=== PATIENT | female | born 1965 | race African-American/Black ===

== ENCOUNTER 2017-06-21 12:37 | Inpatient (IN) | payer MEDICAID ==
[~2017-06-21] VITALS: Ht 162.6 cm; Wt 86.0 kg
[~2017-06-21 12:37] MED LIST: ALPR1TAB7 PO; ASPI81 PO; CLON0.3T3 PO; GABA-531 PO; LABE200T PO; LOSA50TA37 PO; OXYC-158 PO; SIMV20TA6 PO; ZOLP10TA7 PO
[2017-06-21] MEDS ORDERED: HYDROmorphone 2 MG/ML SYRINGE IVP ONE (14:30)
[2017-06-21] MEDS ORDERED: ONDANSETRON HCL 4 MG/2 ML VIAL IVP ONE (14:30)
[2017-06-21] MEDS ORDERED: ALPRAZolam 1 MG TABLET PO ONE (14:30)
[2017-06-21 14:34] LABS: AMPHET/METH SCREEN,URINE NEGATIVE (NEGATIVE); BARBITURATE SCREEN, URINE NEGATIVE (NEGATIVE); BENZODIAZEPINES SCREEN,URINE POSITIVE (NEGATIVE); CANNABINOID SCREEN,URINE POSITIVE (NEGATIVE); COCAINE SCREEN,URINE NEGATIVE (NEGATIVE); METHADONE SCREEN, URINE NEGATIVE (NEGATIVE); OPIATE SCREEN,URINE POSITIVE (NEGATIVE)
[2017-06-21 14:35] LABS: PHENCYCLIDINE SCREEN,URINE NEGATIVE (NEGATIVE)
[2017-06-21 14:40] LABS: APPEARANCE,URINE CLEAR (CLEAR); BILIRUBIN,URINE NEGATIVE (NEGATIVE); GLUCOSE, URINE (UA) NEGATIVE (NEGATIVE); KETONES,URINE NEGATIVE (NEGATIVE); LEUKOCYTE ESTERASE ,URINE NEGATIVE (NEGATIVE); NITRATE,URINE NEGATIVE (NEGATIVE); OCCULT BLOOD,URINE NEGATIVE (NEGATIVE); PROTEIN,URINE TRACE (NEGATIVE)
[2017-06-21 14:54] LABS: BACTERIA,URINE Rare /HPF (None Seen); RBC,URINE 0-2 /HPF (0-2); WBC,URINE 0-2 /HPF (0-5)
[2017-06-21 14:55] LABS: SQUAMOUS EPITHELIAL CELL,UR Moderate /LPF (None Seen)
[2017-06-21 15:33] LABS: BASOPHILS % (AUTO) 0.7 % (0.0-2.0); EOSINOPHILS % (AUTO) 0.5 % (1.0-6.0); HEMATOCRIT 35.1 % (36-46); HEMOGLOBIN 11.9 g/dL (12.0-16.0); LYMPHOCYTES # (AUTO) 1.1 K/uL (1.0-4.8); LYMPHOCYTES % (AUTO) 18.1 % (22.0-44.0); MEAN CORPUSCULAR HEMOGLOBIN 32.1 pg (26.0-34.0); MEAN CORPUSCULAR HGB CONC 33.9 G/dL (31.0-37.0); MEAN CORPUSCULAR VOLUME 95 fL (80-100); MONOCYTES # (AUTO) 0.5 K/uL (0.1-1.0); MONOCYTES % (AUTO) 8.8 % (2.0-9.0); NEUTROPHILS # (AUTO) 4.4 K/uL (1.8-7.7); NEUTROPHILS % (AUTO) 71.9 % (40.0-70.0); PLATELET COUNT (AUTO) 255 K/uL (150-450); RED CELL DISTRIBUTION WIDTH 14.4 % (11.5-14.5)
[2017-06-21 15:45] LABS: PROTHROMBIN TIME 10.4 SEC (9.4-11.6)
[2017-06-21 15:59] LABS: ANION GAP 10 mmol/L (8-16); CALCIUM, TOTAL 9.4 mg/dL (8.8-10.5); CARBON DIOXIDE 28 mmol/L (22-29); CHLORIDE 109 mmol/L (98-107); GLOMERULAR FILTR. RATE CALC > 60 mL/min (>60); GLUCOSE,RANDOM 108 mg/dL (70-110); POTASSIUM 3.9 mmol/L (3.5-5.1); SODIUM SERUM 147 mmol/L (136-145); UREA NITROGEN, BLOOD 9 mg/dL (7-18)
[2017-06-21] MEDS ORDERED: ONDANSETRON HCL 4 MG/2 ML VIAL IVP PRN (16:00)
[2017-06-21] MEDS ORDERED: 0.9% SODIUM CHLORIDE 10 ML SYRINGE IVP PRN (16:00)
[2017-06-21] MEDS ORDERED: ACETAMINOPHEN 325 MG TABLET PO PRN (16:00)
[2017-06-21 16:01] LABS: B-TYPE NATRIURETIC PEPTIDE 33 pg/mL (0-100)
[2017-06-21 16:04] LABS: ALANINE AMINOTRANSFERASE 25 U/L (12-78); ALBUMIN 3.8 g/dL (3.4-5.0); ALKALINE PHOSPHATASE 80 U/L (46-116); ASPARTATE AMINOTRANSFERASE 18 U/L (15-37); BILIRUBIN,TOTAL 0.3 mg/dL (0.1-1.0); TOTAL PROTEIN, SERUM 7.5 g/dL (6.4-8.2)
[2017-06-21] MEDS ORDERED: PROM25 PO (16:14)
[2017-06-21] MEDS ORDERED: ATOR40TA28 PO (16:14)
[2017-06-21] MEDS ORDERED: FURO40 PO (16:14)
[2017-06-21] MEDS ORDERED: NIFE60TA81 PO (16:14)
[2017-06-21] MEDS ORDERED: OXYC10IR PO (16:14)
[2017-06-21] MEDS ORDERED: CARI350 PO (16:14)
[2017-06-21] MEDS ORDERED: ALBU8HFA4 IH (16:14)
[2017-06-21] MEDS ORDERED: CARV12 PO (16:14)
[2017-06-21] MEDS ORDERED: PANT40TA25 PO (16:14)
[2017-06-21] MEDS ORDERED: POTA-9 PO (16:14)
[2017-06-21] MEDS ORDERED: DOCU250C91 PO (16:14)
[2017-06-21] MEDS ORDERED: CLON.3 PO (16:14)
[2017-06-21] MEDS ORDERED: HYDR-2924 PO (16:14)
[2017-06-21] MEDS ORDERED: CloNIDine HCL 0.1 MG TABLET PO ONE (16:45)
[2017-06-21] MEDS ORDERED: HydrALAZINE HCL 25 MG TABLET PO ONE (16:45)
[2017-06-21] MEDS ORDERED: PROMETHAZINE HCL 25 MG TABLET PO PRN (18:45)
[2017-06-21] MEDS ORDERED: ALBUTEROL SULFATE HFA 90 MCG/PUFF 8 GM INHALER IH PRN (18:45)
[2017-06-21] MEDS ORDERED: DOCUSATE SODIUM 250 MG CAPSULE PO PRN (18:45)
[2017-06-21 18:49] VITALS: BP 178/116
[2017-06-21] MEDS ORDERED: NITROGLYCERIN 2% (1 GM=INCH) PACKET TP PRN (19:00)
[2017-06-21] MEDS ORDERED: ACETAMINOPHEN 650 MG/20.3 ML SOLUTION UDCUP PO PRN (19:00)
[2017-06-21 19:49] VITALS: BP 167/89
[2017-06-21] MEDS: HydrALAZINE HCL 20 MG/ML VIAL IVP PRN (20:35)
[2017-06-21] MEDS: LOSARTAN POTASSIUM 50 MG TABLET PO SCH (20:35)
[2017-06-21] MEDS: ALPRAZolam 1 MG TABLET PO SCH (20:36)
[2017-06-21] MEDS: CARISOPRODOL 350 MG TABLET PO SCH (20:36)
[2017-06-21] MEDS: ZOLPIDEM TARTRATE 10 MG TABLET PO SCH (20:36)
[2017-06-21] MEDS: ATORVASTATIN CALCIUM 40 MG TABLET PO SCH (20:36)
[2017-06-21] MEDS: HydrALAZINE HCL 50 MG TABLET PO SCH (21:00)
[2017-06-22] VITALS (14 sets, daily range): BP systolic 137–192; BP diastolic 72–118
[2017-06-22] MEDS: OxyCODONE HCL 10 MG IR TABLET PO PRN ×3 (06:52→20:57)
[2017-06-22] MEDS: HEPARIN SODIUM,PORCINE 5,000 UNITS/ML VIAL SQ SCH ×3 (08:00→16:00)
[2017-06-22] MEDS: FUROSEMIDE 40 MG TABLET PO SCH (08:26)
[2017-06-22] MEDS: LOSARTAN POTASSIUM 50 MG TABLET PO SCH ×2 (08:26→20:20)
[2017-06-22] MEDS: POTASSIUM CHLORIDE 10 MEQ ER TABLET PO SCH (08:26)
[2017-06-22] MEDS: ASPIRIN 81 MG CHEWABLE TABLET PO SCH (08:27)
[2017-06-22] MEDS: HydrALAZINE HCL 50 MG TABLET PO SCH ×3 (08:29→20:57)
[2017-06-22] MEDS: ALPRAZolam 1 MG TABLET PO SCH ×4 (08:29→20:57)
[2017-06-22] MEDS: PANTOPRAZOLE SODIUM 40 MG DR TABLET PO SCH (08:29)
[2017-06-22] MEDS: CARISOPRODOL 350 MG TABLET PO SCH ×2 (08:29→20:20)
[2017-06-22] MEDS ORDERED: CARVEDILOL 12.5 MG TABLET PO ONE (08:45)
[2017-06-22] MEDS ORDERED: CARVEDILOL 25 MG TABLET PO SCH (09:00)
[2017-06-22] MEDS ORDERED: CARVEDILOL 12.5 MG TABLET PO SCH (09:00)
[2017-06-22] MEDS ORDERED: HEPARIN SODIUM 1000 UNITS/NS 1,000 ML ONE (12:21)
[2017-06-22] MEDS ORDERED: LIDOCAINE HCL/PF 1% 30 ML VIAL ONE (12:21)
[2017-06-22] MEDS ORDERED: IOHEXOL 300 MG/ML 150 ML VIAL ONE (12:21)
[2017-06-22] MEDS ORDERED: SODIUM BICARBONATE 50 MEQ/50 ML VIAL ONE (12:21)
[2017-06-22] MEDS ORDERED: FentaNYL CITRATE-PF 100 MCG/2 ML VIAL ONE (12:53)
[2017-06-22] MEDS ORDERED: MIDAZOLAM HCL 2 MG/2 ML VIAL ONE (12:53)
[2017-06-22] MEDS ORDERED: SODIUM CHLORIDE 0.9% 500 ML IV ONE (12:56)
[2017-06-22] MEDS ORDERED: HEPARIN SODIUM 2,000 UNITS in HEPARIN SODIUM 1000 UNITS/NS 1,000 ML IARTER ONE (12:56)
[2017-06-22] MEDS ORDERED: MIDAZOLAM HCL 2 MG/2 ML VIAL IVP ONE (13:00)
[2017-06-22] MEDS ORDERED: FentaNYL CITRATE-PF 100 MCG/2 ML VIAL IVP ONE (13:00)
[2017-06-22] MEDS ORDERED: LIDOCAINE 1% 30 ML/SOD BICARB 8.4% 4 ML SQ ONE (13:00)
[2017-06-22] MEDS ORDERED: IOHEXOL 300 MG/ML 150 ML VIAL IARTER ONE (13:00)
[2017-06-22] MEDS ORDERED: DILTIAZEM HCL 5 MG/ML 5 ML VIAL IVP ONE ×2 (13:07→13:15)
[2017-06-22] MEDS ORDERED: ACETAMINOPHEN 325 MG TABLET PO PRN (13:15)
[2017-06-22] MEDS: ONDANSETRON HCL 4 MG/2 ML VIAL IVP PRN (14:07)
[2017-06-22] MEDS ORDERED: HEPARIN SODIUM,PORCINE 5,000 UNITS/ML VIAL SQ SCH (18:00)
[2017-06-22] MEDS: CARVEDILOL 25 MG TABLET PO SCH (20:20)
[2017-06-22] MEDS: ZOLPIDEM TARTRATE 10 MG TABLET PO SCH (20:20)
[2017-06-22] MEDS: ATORVASTATIN CALCIUM 40 MG TABLET PO SCH (20:20)
[2017-06-23] MEDS: ONDANSETRON HCL 4 MG/2 ML VIAL IVP PRN ×2 (01:44→09:02)
[2017-06-23] MEDS: OxyCODONE HCL 10 MG IR TABLET PO PRN ×2 (05:52→12:38)
[2017-06-23 06:00] VITALS: BP 179/109
[2017-06-23] MEDS: HydrALAZINE HCL 20 MG/ML VIAL IVP PRN (06:04)
[2017-06-23 06:42] LABS: BASOPHILS % (AUTO) 0.9 % (0.0-2.0); EOSINOPHILS % (AUTO) 1.8 % (1.0-6.0); HEMATOCRIT 33.4 % (36-46); HEMOGLOBIN 11.2 g/dL (12.0-16.0); LYMPHOCYTES # (AUTO) 1.8 K/uL (1.0-4.8); LYMPHOCYTES % (AUTO) 33.6 % (22.0-44.0); MEAN CORPUSCULAR HEMOGLOBIN 31.5 pg (26.0-34.0); MEAN CORPUSCULAR HGB CONC 33.4 G/dL (31.0-37.0); MEAN CORPUSCULAR VOLUME 94 fL (80-100); MONOCYTES # (AUTO) 0.5 K/uL (0.1-1.0); MONOCYTES % (AUTO) 10.1 % (2.0-9.0); NEUTROPHILS # (AUTO) 2.8 K/uL (1.8-7.7); NEUTROPHILS % (AUTO) 53.6 % (40.0-70.0); PLATELET COUNT (AUTO) 211 K/uL (150-450); RED BLOOD CELL COUNT(AUTO) 3.54 MIL/uL (4.00-5.20); RED CELL DISTRIBUTION WIDTH 14.1 % (11.5-14.5)
[2017-06-23] MEDS: ALPRAZolam 1 MG TABLET PO SCH ×2 (06:42→12:24)
[2017-06-23 06:58] LABS: ALANINE AMINOTRANSFERASE 18 U/L (12-78); ALBUMIN 3.3 g/dL (3.4-5.0); ALKALINE PHOSPHATASE 71 U/L (46-116); ANION GAP 8 mmol/L (8-16); ASPARTATE AMINOTRANSFERASE 17 U/L (15-37); BILIRUBIN,TOTAL 0.2 mg/dL (0.1-1.0); CALCIUM, TOTAL 9.2 mg/dL (8.8-10.5); CARBON DIOXIDE 27 mmol/L (22-29); CHLORIDE 107 mmol/L (98-107); CHOL/HDL RATIO 3.7 (3.9-5.7); CHOLESTEROL 127 mg/dL (131-200); CREATININE 0.94 mg/dL (0.60-1.30); GLOMERULAR FILTR. RATE CALC > 60 mL/min (>60); GLUCOSE,RANDOM 106 mg/dL (70-110); HDL CHOLESTEROL 34 mg/dL (40-60); LDL CHOL (CALC.) 72 mg/dL (0-130); POTASSIUM 4.5 mmol/L (3.5-5.1); SODIUM SERUM 142 mmol/L (136-145); TOTAL PROTEIN, SERUM 6.8 g/dL (6.4-8.2); TRIGLYCERIDES 105 mg/dL (15-150); UREA NITROGEN, BLOOD 10 mg/dL (7-18)
[2017-06-23 07:38] VITALS: BP 155/94
[2017-06-23] MEDS: HEPARIN SODIUM,PORCINE 5,000 UNITS/ML VIAL SQ SCH ×2 (08:00)
[2017-06-23 09:00] VITALS: BP 186/106
[2017-06-23] MEDS: FUROSEMIDE 40 MG TABLET PO SCH (09:00)
[2017-06-23] MEDS: CARISOPRODOL 350 MG TABLET PO SCH (09:02)
[2017-06-23] MEDS: HydrALAZINE HCL 50 MG TABLET PO SCH (09:02)
[2017-06-23] MEDS: PANTOPRAZOLE SODIUM 40 MG DR TABLET PO SCH (09:02)
[2017-06-23] MEDS: CARVEDILOL 25 MG TABLET PO SCH (09:03)
[2017-06-23] MEDS: ASPIRIN 81 MG CHEWABLE TABLET PO SCH (09:05)
[2017-06-23] MEDS: LOSARTAN POTASSIUM 50 MG TABLET PO SCH (09:05)
[2017-06-23] MEDS: POTASSIUM CHLORIDE 10 MEQ ER TABLET PO SCH (09:05)
[2017-06-23 10:59] VITALS: BP 125/70
[2017-06-23 11:46] VITALS: BP 130/75
== END 2017-06-23 15:05 | disposition home or self-care (01) | DRG 191 ==
LOC: EMS 12:38 → 5S 16:59
PROVIDERS: ADMIT Family Medicine; ATTEND Family Medicine
PROC: 4A023N7 Measurement of Cardiac Sampling and Pressure, Left Heart, Percutaneous Approach (ICD-10-PCS; principal; 2017-06-22)
PROC: B2111ZZ Fluoroscopy of Multiple Coronary Arteries using Low Osmolar Contrast (ICD-10-PCS; 2017-06-22)
PROC: B2151ZZ Fluoroscopy of Left Heart using Low Osmolar Contrast (ICD-10-PCS; 2017-06-22)
DX: I25.110 Atherosclerotic heart disease of native coronary artery with unstable angina pectoris (principal); I11.0 Hypertensive heart disease with heart failure; I50.9 Heart failure, unspecified; F32.9 Major depressive disorder, single episode, unspecified; E78.00 Pure hypercholesterolemia, unspecified; F41.9 Anxiety disorder, unspecified; G47.33 Obstructive sleep apnea (adult) (pediatric); G89.4 Chronic pain syndrome; J45.909 Unspecified asthma, uncomplicated; M19.90 Unspecified osteoarthritis, unspecified site; M79.7 Fibromyalgia; I25.2 Old myocardial infarction; Z90.710 Acquired absence of both cervix and uterus; Z95.5 Presence of coronary angioplasty implant and graft; Z98.1 Arthrodesis status; Z88.0 Allergy status to penicillin; Z88.1 Allergy status to other antibiotic agents; Z79.82 Long term (current) use of aspirin; Z79.01 Long term (current) use of anticoagulants; Z86.718 Personal history of other venous thrombosis and embolism; Z86.73 Personal history of transient ischemic attack (TIA), and cerebral infarction without residual deficits; Z87.891 Personal history of nicotine dependence
CPT/HCPCS: 83735; 93005; 93306; 94660; 96374; 96375; 99285; J0360; J1170; J1644; J2250; J2405; J3010; J3490; Q9967

== ENCOUNTER 2017-07-13 12:48 | Emergency (ER) | payer MEDICAID ==
[~2017-07-13] VITALS: Ht 162.6 cm; Wt 79.5 kg
[~2017-07-13 12:48] MED LIST changes: +ALBU8HFA4 IH; +ATOR40TA28 PO; +CARI350 PO; +CARV12 PO; +CLON.3 PO; -CLON0.3T3 PO; +DOCU250C91 PO; +FURO40 PO; -GABA-531 PO; +HYDR-2924 PO; -LABE200T PO; +NIFE60TA81 PO; -OXYC-158 PO; +OXYC10IR PO; +PANT40TA25 PO; +POTA-9 PO; +PROM25 PO; -SIMV20TA6 PO
[2017-07-13] MEDS ORDERED: ALPRAZolam 0.25 MG TABLET PO ONE (13:45)
[2017-07-13 14:03] VITALS: BP 140/85
== END 2017-07-13 13:59 | disposition home or self-care (01) ==
LOC: EMS 12:50
DX: F41.9 Anxiety disorder, unspecified (principal); Z76.0 Encounter for issue of repeat prescription; E78.00 Pure hypercholesterolemia, unspecified; I11.0 Hypertensive heart disease with heart failure; I50.9 Heart failure, unspecified; J45.909 Unspecified asthma, uncomplicated; M79.7 Fibromyalgia; Z79.82 Long term (current) use of aspirin; Z86.73 Personal history of transient ischemic attack (TIA), and cerebral infarction without residual deficits; Z88.0 Allergy status to penicillin; Z88.1 Allergy status to other antibiotic agents; Z90.710 Acquired absence of both cervix and uterus; Z95.5 Presence of coronary angioplasty implant and graft; Z87.891 Personal history of nicotine dependence
CPT/HCPCS: 99283

== ENCOUNTER 2017-07-20 10:01 | Emergency (ER) | payer MEDICAID ==
[~2017-07-20] VITALS: Ht 162.6 cm; Wt 77.3 kg
[2017-07-20 10:05] VITALS: BP 123/87
== END 2017-07-20 12:24 | disposition home or self-care (01) ==
LOC: EMS 10:02
DX: F41.9 Anxiety disorder, unspecified (principal); E78.00 Pure hypercholesterolemia, unspecified; I11.0 Hypertensive heart disease with heart failure; I50.9 Heart failure, unspecified; J45.909 Unspecified asthma, uncomplicated; M79.7 Fibromyalgia; Z79.82 Long term (current) use of aspirin; Z86.73 Personal history of transient ischemic attack (TIA), and cerebral infarction without residual deficits; Z88.0 Allergy status to penicillin; Z88.1 Allergy status to other antibiotic agents; Z90.710 Acquired absence of both cervix and uterus; Z95.5 Presence of coronary angioplasty implant and graft; Z96.653 Presence of artificial knee joint, bilateral; Z79.899 Other long term (current) drug therapy
CPT/HCPCS: 99284

== ENCOUNTER 2017-10-10 12:19 | Emergency (ER) | payer MEDICAID ==
[~2017-10-10] VITALS: Ht 162.6 cm; Wt 71.4 kg
[2017-10-10 12:22] VITALS: BP 148/94
[2017-10-10] MEDS ORDERED: LORA1TAB3 PO (12:31)
[2017-10-10] MEDS ORDERED: ONDA4 PO (12:31)
== END 2017-10-10 15:45 | disposition home or self-care (01) ==
LOC: EMS 12:19
DX: F41.9 Anxiety disorder, unspecified (principal); F43.20 Adjustment disorder, unspecified; J45.909 Unspecified asthma, uncomplicated; I11.0 Hypertensive heart disease with heart failure; I50.9 Heart failure, unspecified; E78.00 Pure hypercholesterolemia, unspecified; I25.2 Old myocardial infarction; M79.7 Fibromyalgia; Z87.891 Personal history of nicotine dependence
CPT/HCPCS: 99284

== ENCOUNTER 2018-11-18 06:35 | Day surgery (SDC) | payer MEDICAID ==
[~2018-11-18] VITALS: Ht 162.6 cm; Wt 86.0 kg
[~2018-11-18 06:35] MED LIST changes: -ALPR1TAB7 PO; +LORA1TAB3 PO; -LOSA50TA37 PO; +LOSA50TA64 PO; +ONDA4 PO; -PROM25 PO; +SODIUM CHLORIDE 0.9% 1,000 ML IV ONE; -ZOLP10TA7 PO
[2018-11-18] MEDS ORDERED: EPINEPHrine 1:1,000 [1 MG/ML] AMP IM ONE (06:36)
[2018-11-18] MEDS ORDERED: LIDOCAINE 4% 50 ML SOLUTION TP ONE (06:36)
[2018-11-18] MEDS ORDERED: BENZOCAINE 20% 50 MCG/SPRAY 57 GM TP ONE (06:36)
[2018-11-18] MEDS ORDERED: LIDOCAINE 2% 30 ML JELLY TP ONE (06:36)
[2018-11-18] MEDS ORDERED: HYDR2 PO (07:46)
[2018-11-18] MEDS ORDERED: ALPR0.5T8 PO (07:47)
[2018-11-18] MEDS ORDERED: OXYC10 PO (07:47)
[2018-11-18] MEDS ORDERED: MIDAZOLAM HCL 2 MG/2 ML VIAL ONE (08:05)
[2018-11-18] MEDS ORDERED: FentaNYL CITRATE-PF 100 MCG/2 ML VIAL ONE (08:05)
[2018-11-18] MEDS ORDERED: MethylPREDNISolone SOD SUCC 125 MG/2 ML VIAL IVP ONE (08:30)
[2018-11-18] MEDS ORDERED: MethylPREDNISolone SOD SUCC 125 MG/2 ML VIAL ONE (08:41)
[2018-11-18] MEDS ORDERED: OXYGEN THERAPY IH SCH (20:00)
== END 2018-11-18 09:45 | disposition home or self-care (01) ==
LOC: SURGERY 06:35
PROVIDERS: ATTEND Internal Medicine Critical Care Medicine
DX: J38.4 Edema of larynx (principal); B37.0 Candidal stomatitis; I10 Essential (primary) hypertension; K21.9 Gastro-esophageal reflux disease without esophagitis; Z90.710 Acquired absence of both cervix and uterus; Z98.890 Other specified postprocedural states; Z95.1 Presence of aortocoronary bypass graft; Z86.11 Personal history of tuberculosis
CPT/HCPCS: 31623; 31624; 71045; 87015; 87070; 87101; 87206; 87220; 93005; J0171; J2250; J2930; J3010; J7030; 87205; 88108; 88312

== ENCOUNTER 2020-07-21 10:41 | Day surgery (SDC) | payer MEDICAID ==
[2020-07-19 14:02] LABS: COVID AG,FIA SOURCE NASOPHARYNGEAL
[~2020-07-21] VITALS: Ht 162.6 cm; Wt 101.4 kg
[~2020-07-21 10:41] MED LIST changes: +ALPR0.5T8 PO; +ASPI-1450 PO; -ASPI81 PO; -CARI350 PO; +CARI350T26 PO; -CLON.3 PO; +CLON0.3T PO; +DOCU-350 PO; -DOCU250C91 PO; -HYDR-2924 PO; +HYDR2TAB37 PO; +HYDR50TA36 PO; -LORA1TAB3 PO; +LOSA50TA37 PO; -LOSA50TA64 PO; +ONDA-104 PO; -ONDA4 PO; -OXYC10IR PO; +OXYC10TA59 PO; +PANT-31 PO; -PANT40TA25 PO; +SODIUM CHLORIDE 0.9% 1,000 ML ONE
[2020-07-21] MEDS ORDERED: MIRT30 PO (12:11)
[2020-07-21] MEDS ORDERED: MONT-35 PO (12:11)
[2020-07-21] MEDS ORDERED: FURO80 PO (12:11)
[2020-07-21] MEDS ORDERED: OXYC-42 PO (12:11)
[2020-07-21] MEDS ORDERED: DIPH25CA85 PO (12:11)
[2020-07-21] MEDS ORDERED: MELA5TAB3 PO (12:11)
[2020-07-21] MEDS ORDERED: FERR-82 PO (12:11)
[2020-07-21 12:13] LABS: GLUCOMETER DEV NAME(LOC) SDS.; GLUCOSE,POINT OF CARE 130 MG/DL (70-110)
[2020-07-21] MEDS ORDERED: LIDOCAINE 2% 5 ML JELLY ONE (16:42)
[2020-07-21] MEDS ORDERED: PROPOFOL 1% 20 ML VIAL IVP ONE (16:42)
== END 2020-07-21 14:57 | disposition home or self-care (01) ==
LOC: SURGERY 10:41
PROVIDERS: ATTEND Internal Medicine Gastroenterology
DX: K59.00 Constipation, unspecified (principal); D17.5 Benign lipomatous neoplasm of intra-abdominal organs; K64.0 First degree hemorrhoids; E78.00 Pure hypercholesterolemia, unspecified; F41.9 Anxiety disorder, unspecified; G47.30 Sleep apnea, unspecified; G89.4 Chronic pain syndrome; J45.909 Unspecified asthma, uncomplicated; M19.90 Unspecified osteoarthritis, unspecified site; Z20.822 Contact with and (suspected) exposure to COVID-19; Z88.0 Allergy status to penicillin; Z88.1 Allergy status to other antibiotic agents; Z88.8 Allergy status to other drugs, medicaments and biological substances; Z98.51 Tubal ligation status; Z90.710 Acquired absence of both cervix and uterus; Z98.890 Other specified postprocedural states; Z96.652 Presence of left artificial knee joint; Z85.118 Personal history of other malignant neoplasm of bronchus and lung; Z87.01 Personal history of pneumonia (recurrent); Z86.73 Personal history of transient ischemic attack (TIA), and cerebral infarction without residual deficits; K21.9 Gastro-esophageal reflux disease without esophagitis; Z86.010 Personal history of colon polyps; Z95.5 Presence of coronary angioplasty implant and graft; Z87.11 Personal history of peptic ulcer disease; E66.01 Morbid (severe) obesity due to excess calories
CPT/HCPCS: 45378; 82962; 87426; C9803; J2704; J7030